=== PATIENT | male | born 1965 | race Caucasian/White ===

== ENCOUNTER 2017-04-07 09:53 | Inpatient (IN) | payer OTHER ==
[~2017-04-07] VITALS: Ht 180.3 cm; Wt 120.0 kg
--- NOTE | ~2017-04-07 | HP ---
Unit #: [id number] #: [id number] Patient: KRISH SALDIVAR [id number] [address] [address] [id number] I MR#: [id number] NAME: KRISH SALDIVAR. ROOM: 24522 Age: 52 Sex: M Admission Date: 04/07/2017 : 1965 Attending Physician: Sandra Norman M.D. Primary Care Physician: No Primary Care Physician HISTORY AND PHYSICAL CHIEF COMPLAINT High blood sugar. HISTORY OF PRESENT ILLNESS The patient is a 52-year-old male with a history of a type 2 diabetes mellitus, poor compliance, with the A1C always around to 10 11, brought to the emergency room complaining of the high blood sugar. The patient stated the patient has been out of the Lantus for two weeks as patient was referred for the specialist. The patient stated that patient ran out of the prescription and he is not taking Lantus for two weeks and he checked the sugars this morning and the sugars were more than 500. The patient also complains of the numbness of the upper extremities and denies any nausea or vomiting, headache, chest pain, diaphoresis. PAST MEDICAL HISTORY 1. History of a hypertension. 2. Diabetes with insulin use. PAST SURGICAL HISTORY Right shoulder surgery. HOME MEDICATION Patient is on iron, metformin, fish oil, NovoLog, lisinopril, multivitamins, Zestril. ALLERGIES NSAIDs. FAMILY HISTORY Reviewed and none. SOCIAL HISTORY Patient denies any smoking or any illicit drug abuse, positive for social drinking. REVIEW OF SYSTEMS Positive for numbness and tingling and denies any nausea or vomiting, denies any abdominal pain, denies any headache and other systems reviewed and none. PHYSICAL EXAMINATION GENERAL APPEARANCE: On examination the patient is lying on a bed not in acute distress. Unit #: [id number] #: [id number] Patient: KRISH SALDIVAR VITAL SIGNS: Temperature 99, pulse 120, respiratory rate 16, blood pressure 159/95, sating 97% at room air. HEENT: Head atraumatic and normocephalic. Pupils equal, round and reacting to light and accommodation. Extraocular movements are intact. NECK: Supple. LUNGS: Decreased air entry. HEART: Regular rate and rhythm. ABDOMEN: Soft, positive bowel sounds. EXTREMITIES: No cyanosis. No clubbing. NEUROLOGIC: Alert, awake, oriented. No gross focal motor deficit. DIAGNOSTIC STUDIES LABORATORY DATA: Sugar at the time of arrival is 525, down to 306, amylase is 17, lipase is 30, pH 7.4, pCO2 37, pO2 is 72.6, bicarb 23.1, sodium 130, potassium 4.4, chloride 99, bicarb 19, glucose 525, BUN 29, creatinine 1.2. UA is positive for more than 1000 glucose. WBC 10, hemoglobin 15.1, hematocrit 43.7 and platelets 190 and beta hydroxybutyrate is 2. ASSESSMENT 1. Diabetic ketoacidosis. 2. Hypertension. PLAN Plan to admit the patient to the inpatient on telemetry, continue with the IV fluids at 150 mL per hour and start the DKA protocol and the Lantus insulin drip and will have the endocrine consult and replace the electrolytes and further recommendations will follow as more lab results are available. Dictated by Deyvi Pennington/jace TD: 04/07/2017 17:03 JOB #: [id number] HISTORY AND PHYSICAL Page 1 of 1 X SANDRA NORMAN MD X HISTORY AND PHYSICAL
--- NOTE | ~2017-04-07 | DS ---
Unit #: [id number] #: [id number] Patient: KRISH SALDIVAR [id number] [address] [address] [id number] I MR#: [id number] NAME: KRISH SALDIVAR. ROOM: 570 Age: 52 Sex: M Admission Date: 04/07/2017 : 1965 Discharge Date: 04/08/2017 Attending Physician: Rafiq Bright M.D. Primary Care Physician: Primary Care Physician No DISCHARGE SUMMARY PRIMARY DIAGNOSIS Diabetic ketoacidosis. HOSPITAL COURSE The patient was admitted to the hospital, started on DKA protocol with insulin drip, was able to transitioned to subcu insulin late in the evening on the 07 of April. The following morning, the patient's basic metabolic profile and CBC were excellent with complete resolution of his DKA. His blood sugars were ranging from 94 to 335 and his hemoglobin A1c was 11.9. The patient is being placed back on his previous home dose of Lantus at 50 units subcu b.i.d. and have advised him to increase his NovoLog to 20 units with meals three times a day. He will follow his blood sugars closely and go over the results with Dr. Reynolds and follow up in two-to-six weeks. Dr. Reynolds saw the patient here in the hospital on the . The patient continued hypertension throughout his hospitalization and so I did increase his lisinopril from 5 mg to 10. DISCHARGE DISPOSITION To home. DISCHARGE STATUS Stable. DISCHARGE ACTIVITY Ad holly. DISCHARGE DIET A diabetic 2000 mg sodium heart healthy diet. DISCHARGE FOLLOWUP Is with Dr. Reynolds in two-to-six weeks and follow up with his primary care physician in two-to-four weeks. DISCHARGE MEDICATIONS 1. Lantus 50 units subcu b.i.d. 2. Lisinopril 10 mg p.o. daily 3. Glucophage 1000 mg p.o. b.i.d. 4. Iron sulfate 325 mg p.o. daily 5. Multivitamin one tablet p.o. daily 6. Fish oil 1000 mg p.o. daily Unit #: [id number] #: [id number] Patient: KRISH SALDIVAR Dictated by... Rafiq Bright M.D. ERIC/lauren EASTMAN: 04/08/2017 09:25 TD: 04/09/2017 10:43 JOB #: [id number] DISCHARGE SUMMARY Page 1 of 1 X Rafiq Bright MD DISCHARGE SUMMARY
--- NOTE | ~2017-04-07 | EKG ---
PATIENT: KRISH SALDIVAR UNIT #: [id number] Ventricular Rate: 89 BPM Atrial Rate: 89 BPM P-R Interval: 182 ms QRS Duration: 96 ms Q-T Interval: 360 ms QTC Calculation(Bezet): 438 ms P [place]: 13 degrees Calculated R [place]: -36 degrees Calculated T [place]: -15 degrees Diagnosis Line: Normal sinus rhythm Diagnosis Line: Left axis deviation Diagnosis Line: Moderate voltage criteria for LVH, may be normal Diagnosis Line: variant Diagnosis Line: Nonspecific T wave abnormality Diagnosis Line: Abnormal ECG Diagnosis Line: When compared with ECG of 18-JAN-2013 13:17, Diagnosis Line: Inverted T waves have replaced nonspecific T wave Diagnosis Line: abnormality in Inferior leads Diagnosis Line: Diagnosis Line: Confirmed by LORIN BAL MD ([id number]) on Diagnosis Line: 04/08/2017 5:05:20 PM INTERPRETING MD: VALERIANO PATRICK
--- NOTE | ~2017-04-07 | CR63 ---
[facility] A Service [facility] RADIOLOGY TEXT RESULTS PATIENT: KRISH SALDIVAR LOCATION: [facility] : [birth year] UNIT #: [id number] AGE: [address]: Rafiq Bright MD SEX: M ORDER DR: [id number] [facility]. [place], [place] [address] [id number] MR#: [id number] Acc #: [id number] NAME: KRISH SALDIVAR. : 1965 SEX: M STUDY DATE/TIME: 04/07/2017 13:50 UNIT: [facility] ROOM: [facility] STUDY DESCRIPTION: CR Chest 2 View Attending Physician: Laney Norman M.D. Ordering Physician: Ed Dick Rome M.D. Primary Care Physician: Primary Care Physician No MEDICAL IMAGING REPORT This report is preliminary unless electronic signature is present EXAM PA and lateral radiographs of the chest 04/07/2017 HISTORY Diabetic ketoacidosis. Patient out of diabetes meds. Weakness, short of air, high blood pressure. TECHNIQUE PA and lateral radiographs of the chest are presented. COMPARISON 01/18/2013 FINDINGS Degenerative changes in the spine. No acute-appearing bony abnormality. The heart and mediastinum are normal in size and contour. Lungs are well inflated and clear. There is no indication of acute infectious or inflammatory disease, pleural effusion or pneumothorax. No suspicious nodule. Dictated by... Krish Stevens M.D. THIS IS AN ELECTRONICALLY VERIFIED REPORT Krish Stevens M.D. at 04/08/2017 6:45 PM EMMANUELLE/natviidad TD: 04/07/2017 23:21 JOB #: [id number] MEDICAL IMAGING REPORT [facility] A [facility] RADIOLOGY TEXT RESULTS PATIENT: KRISH SALDIVAR LOCATION: [facility] : 61 UNIT #: [id number] AGE: [address]: Rafiq Bright MD SEX: M ORDER DR: Page 1 of 1 COPY
[~2017-04-07 09:53] MED LIST: ACTOS15 MG PO; ACTOS30 MG PO; ANDROGEL1.25 GM TD; APIDRA SOL100 UNIT/1 SUBQ; BYSTOLIC20 MG PO; EDARBYCLOR 40-1 EAC1 PO; FARXIGA10 MG PO; FEOSOL BIFERA 228 MG PO; HCTZ PO; KEFLEX PO; LANTUS SOLOSTAR3 ML SUBQ; LANTUS100 U/M1 SUBQ; LIPITOR20 MG PO; LISINOPRIL-HCTZ1 T14 PO; LOVAZA1 G PO; METFORMIN HCL500 M2 PO; MULTI-VITAMIN1 EAC1 PO; NIASPAN1000 M1 PO; PIOGLITAZONE-M1 EAC1 PO; SPIRONOLACTONE50 MG PO; TRICOR145 MG PO; VICTOZA0.6 MG/0.1 PO; VITAMIN D50000 UNIT PO
[2017-04-07 10:24] LABS: URINE SOURCE CLEAN CATCH
[2017-04-07 10:40] LABS: URINE APPEARANCE CLEAR; URINE BILIRUBIN NEG (NEG); URINE BLOOD NEG (NEG); URINE COLOR YELLOW; URINE GLUCOSE >1000 MG/DL (NEG); URINE KETONE 1+ (NEG); URINE LEUKOCYTE ESTERASE NEG (NEG); URINE NITRATE NEG (NEG); URINE PH 5.5 (5-8); URINE PROTEIN NEG (NEG); URINE SPECIFIC GRAVITY 1.028 (1.003-1.035); URINE UROBILINOGEN 0.2 MG/DL (NEG)
[2017-04-07 10:49] LABS: BASOPHIL% 0.5 % (0-2.5); EOSINOPHIL# 0.1 X10e3 (0-0.7); EOSINOPHIL% 0.6 % (0.0-7.0); HEMATOCRIT 43.7 % (38.0-50.0); HEMOGLOBIN 15.1 gm/dL (13.0-16.0); LYMPHOCYTE# 1.8 X10e3 (1.0-3.5); MEAN CELL VOLUME 86.9 FL (83-96); MEAN CORPUSCULAR HGB CONC 34.5 g/dL (30-36); MEAN PLATELET VOLUME 8.5 FL (6.5-11.5); MONOCYTE# 0.7 X10e3 (0-1.0); NEUTROPHIL# 7.4 X10e3 (1.5-7.1); NEUTROPHIL% 73.9 % (40-75); PLATELET COUNT 190 X10e3 (140-420); RED BLOOD COUNT 5.03 X10e (3.90-5.60); RED CELL DISTRIBUTION WIDTH 13.3 % (11.0-15.5)
[2017-04-07 10:53] LABS: DIFF IND NO
[2017-04-07 11:02] LABS: CULTURE INDICATED? NO
[2017-04-07 11:14] LABS: BETA HYDROXYBUTYRATE 2.03 MMOL/L (0.02-0.27); BUN/CREATININE RATIO 24.16; CALCIUM SERUM 9.7 mg/dL (8.4-10.2); CREATININE SERUM 1.2 mg/dL (0.6-1.4); GLOM FILT RATE Estimated 68.2 mL/min (>60); POTASSIUM 4.4 mmol/L (3.5-5.1)
[2017-04-07] MEDS ORDERED: IRON325 MG PO (11:52)
[2017-04-07] MEDS ORDERED: LANTUS SOL100 UNIT/1 SUBQ (11:53)
[2017-04-07] MEDS ORDERED: METFORMIN PO (11:54)
[2017-04-07] MEDS ORDERED: FISH OIL 1,0001 EAC1 PO (11:55)
[2017-04-07] MEDS ORDERED: NOVOLOG100 U/ML SUBQ (11:55)
[2017-04-07] MEDS ORDERED: LISINOPRIL PO (11:55)
[2017-04-07] MEDS ORDERED: MULTIVITAMINS1 EAC3 PO (11:56)
[2017-04-07] MEDS ORDERED: PATIENT'S PHARMACY (12:02)
[2017-04-07 13:35] LABS: ARTERIAL BLD GAS O2 SATURATION 93.7 % (90.0-100.0); ARTERIAL BLOOD GAS CARBOXY HB 0.9 %sat (0.0-9.0); ARTERIAL BLOOD GAS HCO3 23.1 mmol/L; ARTERIAL BLOOD GAS MET HB 0.7 %sat (0.0-2.0); ARTERIAL BLOOD GAS PCO2 37.3 mmHg (35.0-45.0)
[2017-04-07 13:36] LABS: ARTERIAL BLOOD GAS ALLEN TEST NORMAL; ARTERIAL BLOOD GAS ART SITE LEFT RADIAL; ARTERIAL BLOOD GAS PO2 72.6 mmHg (80.0-100); ARTERIAL DRAW? YES
[2017-04-07 14:24] LABS: AMYLASE 17 U/L (0-46); LIPASE 30 U/L (22-51)
[2017-04-07 15:42] LABS: BUN/CREATININE RATIO 25.55; CALCIUM SERUM 9.1 mg/dL (8.4-10.2); CREATININE SERUM 0.9 mg/dL (0.6-1.4); GLOM FILT RATE Estimated 96.5 mL/min (>60); POTASSIUM 3.6 mmol/L (3.5-5.1)
[2017-04-07 18:55] LABS: BUN/CREATININE RATIO 28.57; CALCIUM SERUM 8.7 mg/dL (8.4-10.2); CREATININE SERUM 0.7 mg/dL (0.6-1.4); POTASSIUM 3.4 mmol/L (3.5-5.1)
[2017-04-08 06:03] LABS: HEMATOCRIT 39.9 % (38.0-50.0); HEMOGLOBIN 13.6 gm/dL (13.0-16.0); MEAN CELL VOLUME 87.5 FL (83-96); MEAN CORPUSCULAR HEMOGLOBIN 29.9 PG (28-34); MEAN CORPUSCULAR HGB CONC 34.2 g/dL (30-36); MEAN PLATELET VOLUME 8.2 FL (6.5-11.5); RED BLOOD COUNT 4.55 X10e (3.90-5.60); RED CELL DISTRIBUTION WIDTH 13.6 % (11.0-15.5); WHITE BLOOD COUNT 6.8 X10e3 (4.0-10.5)
[2017-04-08 06:47] LABS: BUN/CREATININE RATIO 15.55; CALCIUM SERUM 8.5 mg/dL (8.4-10.2); CREATININE SERUM 0.9 mg/dL (0.6-1.4); GLOM FILT RATE Estimated 96.5 mL/min (>60); POTASSIUM 4.4 mmol/L (3.5-5.1)
== END 2017-04-08 10:43 | disposition home or self-care (01) | DRG 639 ==
LOC: CED 09:53 → CEDOF 12:42 → CED 13:28 → C5C 13:28 → CEDOF 13:28 → C5C 20:17 → CEDOF 20:17 → C5C 04-08 07:56
PROVIDERS: Emergency Medicine; Internal Medicine
DX: E13.10 Other specified diabetes mellitus with ketoacidosis without coma (principal); I10 Essential (primary) hypertension; Z79.4 Long term (current) use of insulin; Z91.19 Patient's noncompliance with other medical treatment and regimen
CPT/HCPCS: 36415; 36600; 71020; 80048; 81003; 82010; 82150; 82803; 82947; 83036; 83690; 85025; 85027; 87040; 87086; 93005; 96361; 96374; 99285; J1650; J1815